=== PATIENT | female | born 1955 | race Caucasian/White ===

== ENCOUNTER 2017-12-09 20:16 | Inpatient (IN) | payer OTHER ==
[~2017-12-09] VITALS: Ht 157.5 cm; Wt 84.8 kg
[2017-12-10 01:44] LABS: microscopic required? NO
[2017-12-10 01:45] LABS: PLATELET COUNT 305 x10^3mcL (130-400); RED CELL DISTRIBUTION WIDTH 12.5 % (11.5-14.5)
[2017-12-10 01:47] VITALS: BP 136/63
[2017-12-10 01:51] LABS: CALCIUM 8.2 mg/dL (8.5-10.1); CARBON DIOXIDE 24.3 mmol/L (21-32); CHLORIDE SERUM 102 mmol/L (98-107); CREATININE SERUM 0.6 mg/dL (0.6-1.0); GFR1 > 60 mL/min; GLUCOSE SERUM 353 mg/dL (74-106); POTASSIUM SERUM 4.8 mmol/L (3.5-5.1); SODIUM SERUM 137 mmol/L (136-145)
[2017-12-10 01:53] VITALS: BP 136/73
[2017-12-10 01:53] LABS: BASOPHIL % 4.1 % (0-2)
[2017-12-10 01:55] LABS: PHOSPHOROUS 3.3 mg/dL (2.5-4.9)
[2017-12-10 01:56] LABS: CHOLESTEROL/HDL RATIO 3.1
[2017-12-10 02:06] LABS: urine erythrocyte NEGATIVE (NEGATIVE)
[2017-12-10 02:15] LABS: T3 TOTAL 1.02 ng/mL
[2017-12-10 02:18] LABS: AMPHETAMINE QUAL UR NONE DETECTED (NEG <=1000)
[2017-12-10 02:52] LABS: BILIRUBIN DIRECT 0.09 mg/dL (0.0-0.2); BILIRUBIN TOTAL 0.28 mg/dL (0.20-1.00); TOTAL PROTEIN, SERUM 6.9 g/dL (6.4-8.2)
[2017-12-10 02:54] LABS: ALBUMIN 3.2 g/dL (3.4-5.0)
[2017-12-10 03:14] LABS: FREE T4 1.19 ng/dL (0.76-1.46); FREE THYROXINE INDEX 3.6 ug/dL (1.4-4.5); T4(THYROXINE) 9.5 ug/dL (4.7-13.3)
[2017-12-10 05:27] VITALS: BP 135/56
[2017-12-10 06:40] LABS: CARBON DIOXIDE 26.1 mmol/L (21-32); CHLORIDE SERUM 104 mmol/L (98-107); CREATININE SERUM 0.7 mg/dL (0.6-1.0); GFR1 > 60 mL/min; GLUCOSE SERUM 299 mg/dL (74-106); POTASSIUM SERUM 4.2 mmol/L (3.5-5.1); SODIUM SERUM 138 mmol/L (136-145)
[2017-12-10 07:04] LABS: BASOPHIL % 0.2 % (0-2); PLATELET COUNT 246 x10^3mcL (130-400); RED CELL DISTRIBUTION WIDTH 13.2 % (11.5-14.5)
[2017-12-10 09:41] VITALS: BP 149/56
[2017-12-10 17:19] VITALS: BP 139/58
[2017-12-10 21:00] VITALS: BP 131/49
[2017-12-10] MEDS ORDERED: NOVOLIN N100 U/ML SC (21:17)
[2017-12-11 06:13] VITALS: BP 140/56
[2017-12-11 08:47] LABS: BASOPHIL % 0.6 % (0-2); PLATELET COUNT 205 x10^3mcL (130-400); RED CELL DISTRIBUTION WIDTH 13.3 % (11.5-14.5)
[2017-12-11 09:26] LABS: CALCIUM 7.7 mg/dL (8.5-10.1); CARBON DIOXIDE 23.1 mmol/L (21-32); CHLORIDE SERUM 108 mmol/L (98-107); CREATININE SERUM 0.5 mg/dL (0.6-1.0); GFR1 > 60 mL/min; GLUCOSE SERUM 227 mg/dL (74-106); MAGNESIUM 1.9 mg/dL (1.8-2.4); PHOSPHOROUS 3.8 mg/dL (2.5-4.9); POTASSIUM SERUM 3.9 mmol/L (3.5-5.1); SODIUM SERUM 140 mmol/L (136-145)
[2017-12-11 10:52] VITALS: BP 141/65
[2017-12-11 16:35] VITALS: BP 146/65
[2017-12-11 22:28] VITALS: BP 142/64
[2017-12-12 06:34] VITALS: BP 137/54
[2017-12-12 07:00] LABS: BASOPHIL % 0.3 % (0-2); CARBON DIOXIDE 23.6 mmol/L (21-32); CHLORIDE SERUM 106 mmol/L (98-107); CREATININE SERUM 0.5 mg/dL (0.6-1.0); GFR1 > 60 mL/min; GLUCOSE SERUM 173 mg/dL (74-106); PLATELET COUNT 211 x10^3mcL (130-400); POTASSIUM SERUM 3.9 mmol/L (3.5-5.1); SODIUM SERUM 139 mmol/L (136-145)
[2017-12-12 08:00] VITALS: BP 144/59
[2017-12-12 09:15] VITALS: BP 163/65
[2017-12-12 16:41] VITALS: BP 136/51
[2017-12-12 22:09] VITALS: BP 151/62
[2017-12-13 06:02] VITALS: BP 142/62
[2017-12-13 06:20] LABS: BASOPHIL % 0.2 % (0-2); PLATELET COUNT 220 x10^3mcL (130-400); RED CELL DISTRIBUTION WIDTH 13.2 % (11.5-14.5)
[2017-12-13 06:53] LABS: CARBON DIOXIDE 22.5 mmol/L (21-32); CHLORIDE SERUM 104 mmol/L (98-107); CREATININE SERUM 0.6 mg/dL (0.6-1.0); GFR1 > 60 mL/min; GLUCOSE SERUM 241 mg/dL (74-106); MAGNESIUM 1.8 mg/dL (1.8-2.4); PHOSPHOROUS 3.7 mg/dL (2.5-4.9); SODIUM SERUM 138 mmol/L (136-145)
[2017-12-13 08:00] VITALS: BP 144/66
[2017-12-13 17:09] VITALS: BP 141/54
[2017-12-13 21:49] VITALS: BP 142/57
[2017-12-14 05:48] VITALS: BP 162/62
[2017-12-14 07:47] LABS: CALCIUM 8.1 mg/dL (8.5-10.1); CARBON DIOXIDE 22.4 mmol/L (21-32); CHLORIDE SERUM 105 mmol/L (98-107); CREATININE SERUM 0.5 mg/dL (0.6-1.0); GFR1 > 60 mL/min; GLUCOSE SERUM 178 mg/dL (74-106); MAGNESIUM 1.8 mg/dL (1.8-2.4); PHOSPHOROUS 3.3 mg/dL (2.5-4.9); POTASSIUM SERUM 3.9 mmol/L (3.5-5.1); SODIUM SERUM 140 mmol/L (136-145)
[2017-12-14 07:53] LABS: IRON 14 ug/dL (50-170); TOTAL IRON BINDING CAPACITY 174 ug/dL (250-450)
[2017-12-14 07:55] LABS: BASOPHIL % 0.3 % (0-2); PLATELET COUNT 235 x10^3mcL (130-400); RED CELL DISTRIBUTION WIDTH 12.8 % (11.5-14.5)
[2017-12-14 08:59] LABS: RED BLOOD CELLS 3.71 M/mm3 (4.10-5.10)
[2017-12-14 09:20] VITALS: BP 134/59
[2017-12-14 17:43] VITALS: BP 150/61
[2017-12-14 21:13] VITALS: BP 158/58
[2017-12-15 06:33] VITALS: BP 99/61
[2017-12-15 06:50] LABS: BASOPHIL % 0.6 % (0-2); PLATELET COUNT 258 x10^3mcL (130-400); RED CELL DISTRIBUTION WIDTH 12.9 % (11.5-14.5)
[2017-12-15 07:22] LABS: CALCIUM 8.4 mg/dL (8.5-10.1); CARBON DIOXIDE 23.2 mmol/L (21-32); CHLORIDE SERUM 105 mmol/L (98-107); CREATININE SERUM 0.5 mg/dL (0.6-1.0); GFR1 > 60 mL/min; GLUCOSE SERUM 190 mg/dL (74-106); MAGNESIUM 1.8 mg/dL (1.8-2.4); PHOSPHOROUS 3.2 mg/dL (2.5-4.9); POTASSIUM SERUM 3.8 mmol/L (3.5-5.1); SODIUM SERUM 140 mmol/L (136-145)
[2017-12-15 10:27] VITALS: BP 155/67
[2017-12-15 13:49] VITALS: BP 155/67
[2017-12-15 16:59] VITALS: BP 147/62
[2017-12-15] MEDS ORDERED: FER300 PO (17:04)
[2017-12-15] MEDS ORDERED: NORCO1 TA2 PO (17:05)
== END 2017-12-15 18:32 | disposition home health service (06) | DRG 492 ==
LOC: ED 20:16 → DU 12-10 00:32 → MU 12-10 00:32 → DU 12-10 01:30 → MU 12-10 09:38
PROVIDERS: Family Medicine; Neuromusculoskeletal Medicine, Sports Medicine
PROC: 0QUH07Z Supplement Left Tibia with Autologous Tissue Substitute, Open Approach (ICD-10-PCS; 2017-12-12)
PROC: 0PSJ34Z Reposition Left Radius with Internal Fixation Device, Percutaneous Approach (ICD-10-PCS; 2017-12-12)
PROC: 0QSH04Z Reposition Left Tibia with Internal Fixation Device, Open Approach (ICD-10-PCS; principal; 2017-12-12 09:15)
DX: S82.142A Displaced bicondylar fracture of left tibia, initial encounter for closed fracture (principal); N17.0 Acute kidney failure with tubular necrosis; S52.572A Other intraarticular fracture of lower end of left radius, initial encounter for closed fracture; E44.0 Moderate protein-calorie malnutrition; E11.65 Type 2 diabetes mellitus with hyperglycemia; E11.51 Type 2 diabetes mellitus with diabetic peripheral angiopathy without gangrene; E78.5 Hyperlipidemia, unspecified; E66.9 Obesity, unspecified; Z68.34 Body mass index [BMI] 34.0-34.9, adult; W10.8XXA Fall (on) (from) other stairs and steps, initial encounter; Y92.29 Other specified public building as the place of occurrence of the external cause; E83.51 Hypocalcemia
CPT/HCPCS: 76001; 82962; 84439; 94150; 97110-GP; 97530-GP; 97535-GP; C1713; J0690; J1170; J1644; J1815; J1885; J2250; J2270; J2405; J2800; J3010; J3490; J7030; Q0092

== ENCOUNTER 2018-01-21 10:21 | Inpatient (IN) | payer OTHER ==
[~2018-01-21] VITALS: Ht 162.6 cm; Wt 82.2 kg
[~2018-01-21 10:21] MED LIST: FER300 PO; NORCO1 TA2 PO; NOVOLIN N100 U/ML SC
[2018-01-21 10:32] VITALS: Ht 162.6 cm; Wt 82.2 kg
[2018-01-21] MEDS ORDERED: COZAAR100 MG PO (11:57)
[2018-01-21 12:08] LABS: CALCIUM 8.8 mg/dL (8.5-10.1); CARBON DIOXIDE 25.6 mmol/L (21-32); CHLORIDE SERUM 100 mmol/L (98-107); CREATININE SERUM 0.8 mg/dL (0.6-1.0); GFR1 > 60 mL/min; GLUCOSE SERUM 298 mg/dL (74-106); POTASSIUM SERUM 5.3 mmol/L (3.5-5.1); SODIUM SERUM 133 mmol/L (136-145)
[2018-01-21 12:16] LABS: ALKALINE PHOSPHATASE 107 U/L (46-116); ALT/SGPT 20 U/L (14-59); AST/SGOT 24 U/L (15-37); BILIRUBIN TOTAL 0.53 mg/dL (0.20-1.00)
[2018-01-21 12:17] LABS: ALBUMIN 3.1 g/dL (3.4-5.0)
[2018-01-21 12:27] LABS: PLATELET COUNT 153 x10^3mcL (130-400)
[2018-01-21 12:35] LABS: BASOPHIL % 0 % (0-2)
[2018-01-21 12:43] LABS: T3 TOTAL 0.97 ng/mL
[2018-01-21 12:46] LABS: PHOSPHOROUS 4.2 mg/dL (2.5-4.9)
[2018-01-21 12:47] LABS: CHOLESTEROL/HDL RATIO 3.6
[2018-01-21 12:59] LABS: FREE T4 1.23 ng/dL (0.76-1.46); FREE THYROXINE INDEX 3.8 ug/dL (1.4-4.5); T4(THYROXINE) 10.3 ug/dL (4.7-13.3)
[2018-01-21 13:18] VITALS: BP 135/78
[2018-01-21 16:14] VITALS: BP 108/61
[2018-01-21 21:02] LABS: UA SPECIFIC GRAVITY <=1.005 (1.005-1.035); microscopic required? YES; urine erythrocyte NEGATIVE (NEGATIVE)
[2018-01-21 21:14] LABS: AMPHETAMINE QUAL UR NONE DETECTED (NEG <=1000)
[2018-01-22 06:00] VITALS: BP 112/62
[2018-01-22 07:16] LABS: BASOPHIL % 0.5 % (0-2); PLATELET COUNT 135 x10^3mcL (130-400); RED CELL DISTRIBUTION WIDTH 14.4 % (11.5-14.5)
[2018-01-22 07:51] LABS: CALCIUM 7.7 mg/dL (8.5-10.1); CARBON DIOXIDE 24.9 mmol/L (21-32); CHLORIDE SERUM 111 mmol/L (98-107); CREATININE SERUM 0.7 mg/dL (0.6-1.0); GFR1 > 60 mL/min; GLUCOSE SERUM 110 mg/dL (74-106); PHOSPHOROUS 4.4 mg/dL (2.5-4.9); POTASSIUM SERUM 3.6 mmol/L (3.5-5.1); SODIUM SERUM 143 mmol/L (136-145)
[2018-01-22 09:49] VITALS: BP 116/67
[2018-01-22 12:14] VITALS: BP 116/67
[2018-01-22] MEDS ORDERED: XARELTO20 M1 PO (12:16)
[2018-01-22] MEDS ORDERED: CULTURELLE DIGE1 CAP PO (12:17)
[2018-01-22] MEDS ORDERED: BACTRIM DS1 TAB PO (12:18)
[2018-01-22] MEDS ORDERED: XARELTO15 M1 PO (12:25)
== END 2018-01-22 13:20 | disposition home health service (06) | DRG 299 ==
LOC: ED 10:21 → DU 11:42
PROVIDERS: Specialist; Student in an Organized Health Care Education/Training Program
DX: I82.412 Acute embolism and thrombosis of left femoral vein (principal); N17.0 Acute kidney failure with tubular necrosis; E44.1 Mild protein-calorie malnutrition; I10 Essential (primary) hypertension; I82.432 Acute embolism and thrombosis of left popliteal vein; E11.9 Type 2 diabetes mellitus without complications; E11.51 Type 2 diabetes mellitus with diabetic peripheral angiopathy without gangrene; E87.5 Hyperkalemia; E78.5 Hyperlipidemia, unspecified; Z68.32 Body mass index [BMI] 32.0-32.9, adult
CPT/HCPCS: 82962; 83880; 84439; J0696; J1644; J7030; Q0092